=== PATIENT | female | born 1995 | race Caucasian/White ===

== ENCOUNTER 2025-08-01 04:52 | Emergency (ER) | payer OTHER, SELFPAY ==
[2025-08-01] VITALS (25 sets, daily range): BP systolic 99–116; BP diastolic 65–85; PULSE 69–99; RESP 16; TEMP 36.5; O2SAT 95–98; BMI 26.6
--- NOTE | 2025-08-01 05:13 | ED_ITS ---
HPI - General Adult General Chief complaint: Abdominal Pain Stated complaint: chest pains Time Seen by Provider: 08/01/25 05:13 History of Present Illness HPI narrative: Pt states that at 0030 tonight she started having chest discomfort and stabbing pains in epigastric area, and also right chest. Pt states it was worse after eating. Pain does not refer to any other area. Pt states she took tums this morning for discomfort. 30-year-old woman presenting to the emergency department with concern of sharp epigastric area pain. Around 5 hours ago was eating chips had a friend's house and then subsequently began to feel this pain. She describes it in the epigastrium just a little right of center. Stabbing in nature in feels it straight through to her back. Coming in waves. No shortness of breath. She is nauseated but has not vomited. She wonders if the nausea is more related to the pain. Has not been resolved with Tums. Does have heartburn hard time but this is in that. No cough or cold symptoms. Related Data Allergies Allergy/AdvReac Type Severity Reaction Status Date / Time No Known Drug Allergies Allergy Verified 08/01/25 05:04 Review of Systems Status of ROS: Reports: 6 or more systems reviewed and unremarkable except as noted in History and below Exam Narrative: Exam Narrative: Very pleasant. NAD. Seems uncomfortable though. Breathing easily. Lungs are clear. Heart in elevated rate and regular rhythm. Abdomen is soft with some disc upper is the epigastrium. Not clearly in the right upper quadrant. No reproduction to pain in the back; no apparent flank pain. Is no supraclavicular crepitus. Extremities well perfused without edema. Const: Vital Signs, click to edit/add: Vital Signs - 24 hr 08/01/25 05:00 08/01/25 07:43 08/01/25 07:44 Temperature 97.7 F Pulse Rate 85 78 Pulse Rate [Right Pulse Oximeter] 99 Respiratory Rate 16 Blood Pressure 110/80 Blood Pressure [Ri ght Upper Arm] 116/82 Pulse Oximetry 98 98 98 Oxygen Delivery Me thod Room Air 08/01/25 07:45 08/01/25 07:46 08/01/25 08:01 Temperature Pulse Rate 81 76 82 Pulse Rate [Right Pulse Oximeter] Respiratory Rate Blood Pressure 107/71 106/69 Blood Pressure [Ri ght Upper Arm] Pulse Oximetry 98 98 96 Oxygen Delivery Me thod 08/01/25 08:02 08/01/25 08:15 08/01/25 08:16 Temperature Pulse Rate 81 84 82 Pulse Rate [Right Pulse Oximeter] Respiratory Rate Blood Pressure 111/74 Blood Pressure [Ri ght Upper Arm] Pulse Oximetry 96 97 97 Oxygen Delivery Me thod 08/01/25 08:31 Temperature Pulse Rate 80 Pulse Rate [Right Pulse Oximeter] Respiratory Rate Blood Pressure 107/65 Blood Pressure [Ri ght Upper Arm] Pulse Oximetry 96 Oxygen Delivery Me thod Documenting provider has reviewed patient's vital signs: yes Course Vital Signs Vital signs: Initial Vital Signs Temperature 97.7 F 08/01/25 05:00 Temperature Source Temporal Artery Scan 08/01/25 05:00 Pulse Rate 99 08/01/25 05:00 Pulse Rhythm Regular 08/01/25 05:00 Pulse Strength 3+ Normal 08/01/25 05:00 Respiratory Rate 16 08/01/25 05:00 Blood Pressure 116/82 08/01/25 05:00 Blood Pressure Mean 93 08/01/25 05:00 Blood Pressure Position Sitting 08/01/25 05:00 Pulse Oximetry 98 08/01/25 05:00 Oxygen Delivery Method Room Air 08/01/25 05:00 Vital Signs Temperature 97.7 F 08/01/25 05:00 Pulse Rate 99 08/01/25 05:00 Respiratory Rate 16 08/01/25 05:00 Blood Pressure 116/82 08/01/25 05:00 Pulse Oximetry 98 08/01/25 05:00 Oxygen Delivery Method Room Air 08/01/25 05:00 Temperature 97.7 F 08/01/25 05:00 Pulse Rate 80 08/01/25 08:31 Respiratory Rate 16 08/01/25 05:00 Blood Pressure 107/65 08/01/25 08:31 Pulse Oximetry 96 08/01/25 08:31 Oxygen Delivery Method Room Air 08/01/25 05:00 Medications Administered Medications: Discontinued Medications Generic Name Dose Route Start Last Admin Trade Name Freq PRN Reason Stop Dose Admin Hyoscyamine 0.25 mg 08/01/25 08:09 08/01/25 08:48 Hyoscyamine Sulfate 0.125 Mg Tab SUBLINGUAL 08/01/25 08:10 0.25 mg ONCE ONE Administration Sodium Chloride 1,000 mls @ 1,000 mls/hr 08/01/25 05:28 08/01/25 07:20 0.9 % Sodium Chloride 1000 Ml IV 08/01/25 06:27 Infused .Q1H ONE Infusion Ketorolac Tromethamine 15 mg 08/01/25 05:28 08/01/25 05:48 Ketorolac 15 Mg/Ml Inj IVP 08/01/25 05:29 15 mg ONCE ONE Administration Lidocaine/Aluminum/Magnesium/Simeth 30 ml 08/01/25 07:51 08/01/25 07:54 Gi Cocktail (Visc Lido/Antacid) 30 Ml PO 08/01/25 07:52 Not Given ONCE ONE Morphine Sulfate 4 mg 08/01/25 05:28 08/01/25 05:49 Morphine 4 Mg/Ml Inj IVP 08/01/25 05:29 4 mg ONCE ONE Administration Ondansetron HCl 4 mg 08/01/25 05:28 08/01/25 05:47 Ondansetron 2 Mg/Ml Inj IVP 08/01/25 05:29 4 mg ONCE ONE Administration Medical Decision Making MDM Narrative Medical decision making narrative: Would have concerns of biliary colic here. Did have a couple seltzers but it does not appear really that this is pancreatitis but will check a lipase. At worst a vascular dissection. Symptoms do not really seem pleuritic to suggest pulmonary embolus nor a pneumonia. Presuming biliary disease/colic will treat with IV fluids offered morphine ketorolac and Zofran. Findings by life science research assistant are unremarkable gallbladder Reassessment overall is improved. Symptoms began to return. Declines GI cocktail as apparently does not do well with pills and these sorts of medications as well. Labs unremarkable other than mildly elevated white count at 11.2 with normal transaminases. CRP normal as well. Later does reveal that has a history of gastrointestinal problems of unclear etiology. Sounds like at some point was diagnosed with constipation predominant IBS. Over the last week and having unusual orange stools, are lumpy, loose. Feels like is experiencing some otherwise generalized right-sided discomfort. Admits that she got to considering her symptoms, did some research and thought probably she was experiencing a gallbladder issue. Perhaps there is some enteritis present that could be contributing discomfort. Pain begins escalate again and she feels like is working its way up her chest. Maybe this represents hiatal hernia, sliding or pneumomediastinum pneumothorax. Requested chest x-ray. Also hyoscyamine. INDICATION: Epigastric pain. COMPARISON: None available. TECHNIQUE: Right upper quadrant grayscale and limited color Doppler ultrasound. FINDINGS: Liver: Homogeneous echotexture. Smooth contour. No suspicious focal lesion. No intrahepatic biliary ductal dilatation. Normal hepatopedal portal venous blood flow. Gallbladder: Nondistended. Free of stones or significant sludge. Normal wall thickness. Negative sonographic Negro sign. CBD: 3mm Pancreas: Normal where visualized. The pancreas is partially obscured and therefore incompletely evaluated. Right Kidney: Normal echotexture. No hydronephrosis. No convincing sonographic evidence of nephrolithiasis. Midline Vasculature: Unremarkable where visualized. Peritoneal Cavity: No significant ascites. Additional Findings: None. IMPRESSION: No imaging findings pertinent to the indication for the exam or significant unrelated findings. Dictated by Blas Busch MD @ 08/01/2025 8:04:16 AM One-view chest x-ray independently reviewed by me looks to be WNL. I do not see a hiatal hernia. No pneumothorax or pneumomediastinum. No infiltrate. Hyoscyamine is not helpful. Continues to experience waves or spasms of pain in mid chest. Declines further pain medication in case she needs to drive. I am not sure what more to do here. We discussed further imaging modalities. After discussion of options she would like to proceed with chest CT to be sure we are not missing anything. Would be unusual but certainly could be vascular disruption, esophageal spasm, pulmonary embolus. Unfortunately will need to hand of change of shift pending final imaging of chest abdomen pelvis Medical Records Medical records reviewed: Yes I reviewed the patient's medical records Lab Data Lab results reviewed: Yes I reviewed the patient's lab results Labs: Lab Results 08/01/25 Range/Units 05:37 WBC 11.20 H (4.50-11.00) K/uL RBC 4.26 (4.00-5.20) m/uL Hgb 12.9 (12.0-16.0) gm/dL Hct 38.6 (33.0-51.0) % MCV 91 (80-100) fL MCH 30 (26-34) pg MCHC 33 (32-36) gm/dL RDW Coeff of Keely 12.6 (11.5-15.5) % Plt Count 293 (140-440) K/uL Neut % (Auto) 68.1 (42.0-72.0) % Lymph % (Auto) 23.1 (20-44) % Gratiot % (Auto) 6.9 (0.0-11.0) % Eos % (Auto) 0.7 (0.0-7.0) % Baso % (Auto) 0.4 (0.0-3.0) % Neut # (Auto) 7.60 H (1.7-7.0) K/uL Lymph # (Auto) 2.60 (0.90-2.90) K/uL [place] # (Auto) 0.80 (0.00-0.90) K/UL Eos # (Auto) 0.10 (0.00-0.50) K/uL Baso # (Auto) 0.00 (0.00-0.30) K/uL Abs Immat Gran (auto) 0.10 (0.00-0.30) K/uL Imm/Tot Granulo (auto) 0.8 % D-Dimer Quant (PE/DVT) 0.08 (0.00-0.50) ug/ml Total Bilirubin 0.5 (0.1-1.5) mg/dL Direct Bilirubin 0.2 (0.0-0.5) mg/dL AST 21 (12-35) U/L ALT 16 (4-35) U/L Alkaline Phosphatase 62 (40-150) U/L Troponin I < 0.01 (0.01-0.04) ng/mL C-Reactive Protein < 0.5 L (0.5-1.0) mg/dL Total Protein 7.4 (6.0-8.3) g/dL Albumin 4.7 (3.3-5.0) g/dL Lipase 99 (23-300) U/L Discharge Plan Discharge Clinical Impression: Colicky epigastric pain Patient Disposition: Home, Self-Care Follow Up/Referrals: Provider,Not a Local [Primary Care Provider, Family Practice] Stand Alone Forms: [employer] Info Instructions
[2025-08-01 05:45] LABS: Hematocrit* 38.6 % (33.0-51.0); Hemoglobin* 12.9 gm/dL (12.0-16.0); Immature Granulocytes Pct Auto 0.8 %; Mean Corpuscular HGB Conc 33 gm/dL (32-36); Mean Corpuscular Hemoglobin 30 pg (26-34); Mean Corpuscular Volume 91 fL (80-100); RDW Coefficient of Variation % 12.6 % (11.5-15.5); Red Blood Count* 4.26 m/uL (4.00-5.20); White Blood Count* 11.20 K/uL (4.50-11.00)
[2025-08-01] MEDS: ONDANSETRON 2 MG/ML inj 4 MG IVP (05:47)
[2025-08-01 05:48] LABS: Immature Granulocytes Abs Auto 0.10 K/uL (0.00-0.30); Lymphocytes Absolute Auto 2.60 K/uL (0.90-2.90)
[2025-08-01 05:49] LABS: Slide Review Reflex No
[2025-08-01] MEDS: MORPHINE 4 MG/ML INJ IVP (05:49)
--- OUTSIDE RECORDS SUMMARY | 2025-08-01 05:52 | XMS_ITS | Clinical Summary ---
Author Organization [facility] Address [address] [place] [id number] Care Team Providers Care Jacker Feeder Name Role Phone Salomón Londono MD Primary Care Provider [phone] Allergies Active Allergy Reactions Criticality Noted Date Comments Cat Dander Runny Nose 01/09/2021 House Dust Other - Describe In Comment Field High 02/02/2015 Dust, dust mites- itchy eyes, sore throat Medications hydrOXYzine HCL 10 mg tabletIndication s:Anxiety disorder, unspecified type TAKE 1-3 TABLETS (10-30 MG) BY MOUTH EVERY 6 HOURS IF NEEDED FOR ANXIETY. 60 Tablet 5 Active sertraline 100 mg tabletIndication s:Anxiety disorder, unspecified type,Depressive disorder Take 1 Tablet (100 mg) by mouth once daily in the morning. 90 Tablet 1 5 Active predniSONE (DELTASONE) 50 mg tab tabletIndication s:Upper respiratory tract infection, unspecified type Take 1 tablet with morning meal x 5 days 5 Tablet 5 Active amoxicillin 500 mg tabletIndication s:Sinusitis, unspecified chronicity, unspecified location Take 2 Tablets (1,000 mg) by mouth two times daily for 10 days. 40 Tablet 5 07/03/20 25 Hospital, Clinic, or Other Facility Administered Medication Ordered Dose Route Frequency Start Date End Date Status medroxyPROGESTERone acetate (contraceptive) (DEPO-PROVERA) injection 150 mgIndications:Uses contraception 150 mg IM ONE TIME 07/19/2025 07/19/2025 Ended Active Problems Problem Noted Date Diagnosed Date Dyspareunia in female 08/27/2024 S/P right hip arthroscopy wi th labral repair, focal acetabular rim and subspine decompression, femoroplasty, and capsular repair DOS 05/15/[address] Rollins 10/25/2023 S/p Left hip arthroscopy wit h labral repair, focal acetabular rim and subspine decompression, femoroplasty, capsular repair DOS 12/05/[address] Rollins 10/25/2023 High-risk human papillomavir us (HPV) DNA detected in cervical specimen, not type 16 or 18 09/14/2023 Overview (09/14/2024): 08/2024 NIL/HPV+, HPV 16/18 negative Plan: Pap/HPV due 08/2025 History of COVID-19 12/02/2022 Closed fracture of one rib o f right side with routine healing 12/02/2022 Overweight 12/02/2022 Depressive disorder 12/02/2022 Anxiety disorder 12/02/2022 Depo-Provera contraceptive status 08/28/2021 Resolved Problems Problem Noted Date Diagnosed Date Resolved Date Encounter for contraceptive management 08/27/2024 12/21/2024 Femoroacetabular impingement of both hips 12/02/2022 10/25/2023 Femoroacetabular impingement of left hip 12/02/2022 10/25/2023 Tear of left acetabular labrum 12/02/2022 10/25/2023 Pap smear for cervical cancer screening 08/28/2021 12/02/2022 Overview (09/28/2021): 08/2021 NIL Plan: Pap/HPV due 08/2024 Vaginismus 12/19/2017 12/02/2022 Encounters Date Type Department Care Team Description 07/19/2025 9:00 AM LOG HOOKER Nurse/Clinic Staff Only [facility] [id number] [place] [address] Immunization/Injecti on (Depo Provera) 07/19/2025 Travel 06/23/2025 2:00 PM CDT Office Visit [facility] [id number] [place] [id number] [facility] [place] [facility] Ear Problem ([place] discharge left ear x once 06/23/25) 06/23/2025 Travel 06/23/2025 Nurse Triage [facility] [address] [facility] [address] [phone] Salomón Londono MD Ear Pain/problem from Last 3 Months Immunizations Immunization Administration Dates Next Due COVID-19 vaccine (Pfizer-Bio NTech 30mcg/0.3mL) 12YO+ SERGEY-SUCROSE PF, MDV 09/28/2021 COVID-19 vaccine (Pfizer-Bio NTech 30mcg/0.3mL) PF, MDV 02/03/2021,01/13/2021 DTaP 07/03/1999, 6,1994,07/26,1994 Hepatitis A (Adult) 06/24/2015 Hepatitis B (Peds) 1994,1994, 994 Hib Conjugate, Unspecified 06/14/1995,,1994,05/15 Human Papilloma Virus Vaccine 11/18/2009, 009,04/19/2008 Inactivated Polio Vaccine 07/03/1999,01/1996,1994,05/15 Influenza, IIV3 (Age >=3 years) 08/05/2009 Influenza, IIV4 06/24/2017,06/24/2015 Influenza, IIV4 (=>6mos) MDV 06/23/2019 MENINGOCOCCAL VACCINE 2 VIAL 2MO-55YO (MENVEO) 06/24/2015 MMR 07/03/1999,06/14/1995 Meningococcal, Unspecified 06/08/2005 Td (Age >=7 Years) 06/24/2015 Td, Preservative Free (age >= 7 Years) 5 Tdap 06/08/2005 Varicella Vaccine 04/19/2008,03/14/1995 Family History Medical History Relation Name Comments Good Health Brother Good Health Father Cancer-breast Maternal Grandmother Heart Disease Maternal Uncle Aneurysm Mother Heart Disease Mother Enlarged aorta , open heart surgery Heart Disease Paternal Grandfather Relation Name Status Comments Brother Alive Father Alive Maternal Grandfather Maternal Grandmother Alive Maternal Uncle Mother Alive Paternal Grandfather Paternal Grandmother Social History Tobacco Use Types Packs/Day Years Used Date Smoking Tobacco: Never Smokeless Tobacco: Never Tobacco Cessation:Counseling Given: No Alcohol Use Standard Drinks/Week Comments Yes 0 (1 standard drink = 0.6 oz pur e alcohol) PHQ-2 Answer Date Recorded PHQ-2 TOTAL SCORE 1 01/22/2025 Social Connections Answer Date Recorded Do you often feel lonely or isolated from those around you? 0 08/27/2024 Alcohol Use Answer Date Recorded How often do you have a drink containing alcohol ? 1 06/23/2025 How many drinks containing a lcohol do you have on a typical day when you are drinking? 0 06/23/2025 How often do you have five or more drinks on one occasion? 1 06/23/2025 Financial Resource Strain Answer Date R ecorded Difficulty of Paying Living Expenses 3 08/27/2024 Difficulty of Paying Living Expenses Not on file 08/27/2024 Food Insecurity Answer Date Recorded Do you worry your food will run out before you are able to buy more? 1 08/27/2024 Transportation Needs Answer Date Record ed Does lack of transportation keep you from medica l appointments? 1 08/27/2024 Does lack of transportation keep you from work, meetings or getting things that you need? 1 08/27/2024 Housing Stability Answer Date Recorded What is your housing situation today? 1 08/27/2024 Utilities Answer Date Recorded Do you have trouble paying f or utilities (for example, heat, electricity, water, phone)? 1 08/27/2024 Comments No Sex and Gender Information Value Date Recorded Sex Assigned at Not on file Legal Sex Female 8:36 AM LOG HOOKER Gender Identity Not on file Sexual Orientation Not on file Obstetrics History Para Term AB IAB SAB Ectopic Multiple Livin g Live Births 0 0 0 0 0 0 0 0 0 0 0 Last Filed Vital Signs Vital Sign Reading Time Taken Comments Blood Pressure 100/62 07/19/2025 9:19 AM LOG HOOKER Pulse 106 06/23/2025 2:09 PM CDT Temperature 37 C (98.6 F) 06/23/2025 2:09 PM CDT Respiratory Rate 16 09/14/2024 9:31 AM LOG HOOKER Oxygen Saturation 98% 06/23/2025 2:09 PM CDT Inhaled Oxygen Concentration - - Weight 76.9 kg (169 lb 8 oz) 07/19/2025 9:19 AM LOG HOOKER Height 167 cm (5' 5.75) 12/21/2024 8:26 AM CDT Body Mass Index 27.57 12/21/2024 8:26 AM CDT Plan of Treatment Health Maintenance Due Date Last Done Comments Influenza Vaccine (#1) 2025 9, 06/24/2017, 06/24/2015, Additional history exists Tetanus booster 06/24/2025 06/24/2015, 05/12, 06/08/2005, Additional history exists Pap test for age 21-65 08/27/2025 , 08/27/2024, 08/28/2021, Additional history exists BMI (ht and wt on same day) for age 18+ 12/21/2025 12/21/2024, 10/18/2023, 05/10/2023, Additional history exists Depression screening for age 12+ 01/22/2026 01/22/2025, 12/25/2024, 12/21/2024, Additional history exists RSV vaccine for adults or (1 - 1-dose 75+ series) 2069 Hepatitis B series for 19+ Completed 12/26, 1994, 1994 HPV series for age 9-45 Completed 11/19/19 10, 08/05/2009, 04/19/2008 HIV for age 15-65 Completed 10/18/2023 Hepatitis C screening for age 18-79 Completed 10/18/2023 Pneumococcal series for age 6-49 Aged Out No longer eligible based on patient's age to complete this topic Procedures Procedure Name Priority Date/Time Associated Diagnosis Comments PILE OPERATOR THIN PREP PAP SCREEN IMAGED Routine 08/27/2024 3:00 PM LOG HOOKER Cervical cancer screening ANTI HIV 1/2 Routine 10/18/2023 4:24 PM LOG HOOKER Screening for HIV (human immunodeficiency virus) ANTI HCV Routine 10/18/2023 4:24 PM LOG HOOKER Need for hepatitis C screening test from Last 3 Months or Most Recently Relevant to Health Maintenance Results * PILE OPERATOR THIN PREP PAP SCREEN IMAGED (08/27/2024 3:00 PM LOG HOOKER) Case Report Gynecologic Cytology Report Case: [id number] Authorizing Provider: Marisa Castro Collected: 08/27/2024 Manuel Moore CNM Ordering Location: [facility] Received: 08/27/2024 1609 Clinic First Screen: Rosario Haney Pathologist: Vitaliy Ho Jr., MD Specimen: PILE OPERATOR ThinPrep Vial Screening, Cervical 09/14/2024 4:11 PM [facility] INTERPRETATION/ RESULT NEGATIVE FOR INTRAEPITHELIAL LESION OR MALIGNANCY (NIL) (none) 09/14/2024 4:11 PM LOG HOOKER [facility] at [address] OTHER NON-NEOPLASTIC FINDING(S) Reactive cellular changes associated with inflammation/repa ir 09/14/2024 4:11 PM LOG HOOK[facility] SPECIMEN ADEQUACY Satisfactory for evaluation Endocervical component present 09/14/2024 4:11 PM LOG HOOKER [facility] HPV REQUEST HPV and PAP 09/14/2024 4:11 PM [facility]OOK[facility] Date of LMP unknown 09/14/2024 4:11 PM LOG HOOKER [facility] Last Pap Date 08/28/21 09/14/2024 4:11 PM LOG HOOKER [facility] Last Pap Result NIL 4:11 PM LOG HOOKER [facility] Abnormal Pap or Merced Bx in last 5 years No 09/14/2024 4:11 PM LOG [facility]OOK[facility] Menstrual Status Hormonally Suppressed 09/14/2024 4:11 PM LOG HOOKER [facility] Merced Bx Done Today No 09/14/2024 4:11 PM LOG HOOKER [facility] Additional Information None given 09/14/2024 4:11 PM LOG HOOKER [facility] Comment: Cytology is screened at [facility] - [address], [place] [address] and [facility] - [address], [place] [address] and [facility] - [address] [place] [address] Interpreted at [facility] - [address], [place] [address] Automated Review Successful 09/14/2024 4:11 PM LOG HOOKER [facility] Comment:Specimen processed s uccessfully by automated vacuum drier tender device, [employer] System, [employer] ANCILLARY TESTING PILE OPERATOR HPV Ordered, Please see separate report 09/14/2024 4:11 PM LOG HOOKER [facility] Note The pap test is a screening technique, not a diagnostic procedure. It is used primarily to screen for squamous cancers and precursor lesions. Published studies have shown that it is subject to both false negative and false positive results. The pap test should not be used as the sole means to diagnose or exclude pre-malignant and malignant lesions. 09/14/2024 4:11 PM LOG HOOKER [facility] Other (Cervical) Non-Blood / Unknown 08/27/2024 3:00 PM LOG HOOKER 08/27/2024 4:09 PM LOG HOOKER [facility] PATHOLOGY/CYTOLOG Y Final Result [facility] [address] [place] [address], * ANTI HCV (10/18/2023 4:24 PM LOG HOOKER) HEPATITIS C ANTIBODY Non-Reacti ve Non-React rey 10/18/2023 10:44 PM LOG HOOKER [facility] TRAL LABORATORY Comment:Please note, per www .CDC.gov: If a patient is known to be at high risk of HCV infection, or is symptomatic, and the physician's suspicion of HCV infection is high, HCV RNA testing is often employed and is of diagnostic value, even after an initial negative anti-HCV test result. Blood BLOOD SPECIMEN / Unknown Venipuncture / Unknown 10/18/2023 4:24 PM LOG HOOKER 10/18/2023 4:27 PM LOG HOOKER Salomón Londono MD SEND OUTS Final Resul t Performing Organization Address [facility] Co de Phone Number [facility] [address] [address], * ANTI HIV 1/2 [75309.0] (10/18/2023 4:24 PM LOG HOOKER) HIV-1/HIV-2 SCREEN Non-Reacti ve Non-Reacti ve 10/18/2023 10:51 PM LOG HOOKER [facility] TR[facility] Comment:HIV-1 p24 and HIV-1/ HIV-2 Ab Not Detected. Blood BLOOD SPECIMEN / Unknown Venipuncture / Unknown 10/18/2023 4:24 PM LOG HOOKER 10/18/2023 4:27 PM LOG HOOKER us Salomón Londono MD SEND OUTS Final Resul t Performing Organization Address [facility] de Phone Number [facility] [address] [place] [address], from Last 3 Months or Most Recently Relevant to Health Maintenance Insurance [facility] [place] [phone] Care Teams Jacker Feeder Relationship Specialty Start Date End Date Salomón Londono MD [address] [address] PCP - General Internal Medicine 02/22/22
--- OUTSIDE RECORDS SUMMARY | 2025-08-01 05:52 | XMS_ITS | Clinical Summary ---
Author Organization [facility] Address [address] [place] [address] Care Team Providers Care Degreaser Name Role Phone Unknown, Md MARTINEZ Primary Care Provider [phone] Clinic, Unknown Unavailable Unavailable Allergies No known active allergies Medications NO MEDICATIONS Activ e azithromycin (ZITHROMAX) 250 mg oral tablet Take 2 tabs on day one. Then take 1 tab on day 2 through 5 until gone. 6 tablet 01/07/2022 Active Active Problems No known active problems Social History Tobacco Use Types Packs/Day Years Used Date Smoking Tobacco: Never Smokeless Tobacco: Never Alcohol Use Standard Drinks/Week Comments Not Currently 0 (1 standard drink = 0.6 oz pur e alcohol) Comments No Sex and Gender Information Value Date Recorded Sex Assigned at Not on file Legal Sex Female 11:35 AM [employer]CHNICIAN Gender Identity Not on file Sexual Orientation Not on file Last Filed Vital Signs Vital Sign Reading Time Taken Comments Blood Pressure 109/87 01/07/2022 10:34 PM CDT Pulse 102 01/07/2022 10:34 PM CDT Temperature 37.1 C (98.7 F) 01/07/2022 6:07 PM CDT Respiratory Rate 17 01/07/2022 9:15 PM CDT Oxygen Saturation 97% 01/07/2022 10:34 PM CDT Inhaled Oxygen Concentration - - Weight - - Height 165.1 cm (5' 5) 01/07/2022 6:07 PM CDT Body Mass Index - - Plan of Treatment Health Maintenance Due Date Last Done Comments Hepatitis C Screening 1994 Pap Smear 1994 Anxiety Screening (JAIME-2) 1995 Depression Assessment (PHQ-2) 1995 COVID-19 Vaccine (4 - 2024-2 6 season) 2025 09/28/2021, 02/03/2021, 01/13/2021 Influenza Vaccine (#1) 2025 9, 06/24/2017, 06/24/2015 Adult Tetanus Booster 06/24/2025 06/24/2015 , 06/08/2005 RSV Vaccines (1 - 1-dose 75+ series) 2069 HPV Vaccine Completed 11/18/2009, 08/05/2009, 04/19/2008 Meningococcal B Vaccine Aged Out No l onger eligible based on patient's age to complete this topic Pneumococcal Vaccine Aged Out No long er eligible based on patient's age to complete this topic Insurance [employer] Care Teams Degreaser Relationship Specialty Start Date End Date Unknown, , [place] PCP - General 10/23/13 Clinic, Unknown [place] PCP - [facility] 10/23/13
[2025-08-01 05:59] LABS: Albumin* 4.7 g/dL (3.3-5.0)
[2025-08-01 06:02] LABS: Alanine Aminotransferase* 16 U/L (4-35); Alkaline Phosphatase* 62 U/L (40-150); Aspartate Amino Transferase* 21 U/L (12-35); Bilirubin Direct* 0.2 mg/dL (0.0-0.5); Bilirubin Total* 0.5 mg/dL (0.1-1.5); Total Protein* 7.4 g/dL (6.0-8.3)
[2025-08-01 06:07] LABS: D Dimer Quantitative* 0.08 ug/ml (0.00-0.50)
--- NOTE | 2025-08-01 06:46 | CRLHL7_ITS ---
For Patients: As a result of the Century Cures Act, medical imaging exams and procedure reports are released immediately into your electronic medical record. You may view this report before your referring provider. If you have questions, please contact your health care provider. INDICATION: Epigastric pain. COMPARISON: None available. TECHNIQUE: Right upper quadrant grayscale and limited color Doppler ultrasound. FINDINGS: Liver: Homogeneous echotexture. Smooth contour. No suspicious focal lesion. No intrahepatic biliary ductal dilatation. Normal hepatopedal portal venous blood flow. Gallbladder: Nondistended. Free of stones or significant sludge. Normal wall thickness. Negative sonographic Negro sign. CBD: 3mm Pancreas: Normal where visualized. The pancreas is partially obscured and therefore incompletely evaluated. Right Kidney: Normal echotexture. No hydronephrosis. No convincing sonographic evidence of nephrolithiasis. Midline Vasculature: Unremarkable where visualized. Peritoneal Cavity: No significant ascites. Additional Findings: None. IMPRESSION: No imaging findings pertinent to the indication for the exam or significant unrelated findings. Dictated by Blas Busch MD @ 08/01/2025 8:04:16 AM (Electronically Signed)
--- NOTE | 2025-08-01 08:09 | CRLHL7_ITS ---
For Patients: As a result of the Century Cures Act, medical imaging exams and procedure reports are released immediately into your electronic medical record. You may view this report before your referring provider. If you have questions, please contact your health care provider. INDICATION: Epigastric pain TECHNIQUE: Chest 1 views. COMPARISON: None. FINDINGS: Cardiovasculature and mediastinum: Heart size is normal. Unremarkable mediastinum. Lungs and pleural spaces: Lungs are clear. No pneumothorax or large pleural effusion, though the right costophrenic angle is out field of view. Bones and soft tissues: No significant findings. IMPRESSION: No acute findings. Dictated by Carmella Kinsey MD @ 08/01/2025 8:39:37 AM (Electronically Signed)
[2025-08-01] MEDS: HYOSCYAMINE SULFATE 0.125 MG TAB 0.25 MG SUBLINGUAL (08:48)
--- NOTE | 2025-08-01 09:16 | CRLHL7_ITS ---
For Patients: As a result of the Century Cures Act, medical imaging exams and procedure reports are released immediately into your electronic medical record. You may view this report before your referring provider. If you have questions, please contact your health care provider. INDICATION: Midsternal spasms of pain into back. Epigastric pain. (Sic) COMPARISON: Same day limited right upper quadrant ultrasound. TECHNIQUE: CT of the chest, abdomen and pelvis with 100 cc of Isovue 370 intravenous contrast. Please note that all CT scans at this facility use dose modulation, iterative reconstruction, and/or weight-based dosing when appropriate to reduce radiation dose to as low as reasonably achievable. FINDINGS: THORAX Visualized Lower Neck: No lower cervical adenopathy. Lungs: No significant pulmonary findings. Pleura: No pleural effusion. No pneumothorax. Mediastinum: Thoracic aorta and pulmonary trunk are normal in caliber. Heart and pericardium are without significant findings. Trachea and esophagus are normal in appearance. No mediastinal lymphadenopathy. ABDOMEN Liver: Normal contour and attenuation. No significant focal lesion. No intrahepatic biliary ductal dilatation. Patent portal veins. Patent hepatic veins. Gallbladder: Normal size. No pericholecystic inflammatory changes. Normal common duct caliber. Pancreas: Normal contour and attenuation. No peripancreatic inflammatory changes. No significant focal lesion. Normal main duct caliber. Spleen: Not enlarged. No significant focal lesion. Patent splenic artery and vein. Adrenal Glands: Symmetrical adrenal glands. No significant focal lesion. Kidneys: Normal bilateral renal attenuation. No significant focal lesion. No nephrolith. No dilatation of the intrarenal collecting systems. No ureteral stone. Nondilated ureters. Patent renal arteries and veins. Gastrointestinal tract: Normal caliber, attenuation and wall thickness of the gastrointestinal tract. No inflammatory changes. Normal small bowel mesentery. Normal appendix. Vascular: Abdominal aorta and its major proximal branches including the celiac, superior mesenteric, inferior mesenteric, renal, and bilateral common iliac arteries are patent. Patent superior mesenteric vein. Peritoneal Cavity/Retroperitoneum: No ascites. No adenopathy. PELVIS No bladder lesion is identified. Dilated left periuterine vessels and enlarged left ovarian vein consistent with pelvic congestion syndrome in the appropriate clinical setting. No significant ascites. No adenopathy. SKELETON AND BODY WALL No acute or significant incidental findings. IMPRESSION: 1. No imaging findings to explain the clinical history. 2. Dilated left periuterine vessels and enlarged left ovarian vein consistent with pelvic congestion syndrome in the appropriate clinical setting. 3. Additional incidental findings as above. Please note that all CT scans at this facility use dose modulation, iterative reconstruction, and/or weight-based dosing when appropriate to reduce radiation dose to as low as reasonably achievable. Dictated by Blas Busch MD @ 08/01/2025 10:04:28 AM (Electronically Signed)
[2025-08-01] MEDS: OMEPRAZOLE 20 MG CAPSULE DR PO (10:27)
== END 2025-08-01 10:34 | disposition home or self-care (01) ==
PROVIDERS: Family Medicine; Emergency Provider Family Medicine
DX: R10.13 Epigastric pain (principal); R07.89 Other chest pain
CPT/HCPCS: 36415; 71045; 71260; 74177; 76705; 80076; 83690; 84484; 85025; 85379; 86140; 96374; 96375; 99284; 99285; A9270; C1769; J1885; J2270; J2405; J7030; Q9967